=== PATIENT | female | born 1965 | race African-American/Black ===

== ENCOUNTER 2018-01-31 09:20 | Emergency (ER) | payer SELFPAY ==
[~2018-01-31] VITALS: Ht 165.1 cm; Wt 104.0 kg
[2018-01-31] MEDS ORDERED: HYDROCHLOROTHIAZIDE 12.5MG CAPSULE PO ONE (11:00)
[2018-01-31] MEDS ORDERED: AMOXICILLIN/POTASSIUM CLAVULANATE 875/125MG TAB PO ONE (11:00)
[2018-01-31 11:43] VITALS: BP 163/94
== END 2018-01-31 12:03 | disposition home or self-care (01) ==
LOC: ER 09:20
DX: H66.92 Otitis media, unspecified, left ear (principal); I10 Essential (primary) hypertension; F17.200 Nicotine dependence, unspecified, uncomplicated
CPT/HCPCS: 99283